=== PATIENT | female | born 1975 | race Caucasian/White ===

== ENCOUNTER 2016-04-28 11:52 | Emergency (ER) | payer OTHER ==
--- NOTE | ~2016-04-28 | CT4 ---
[facility] A Service of [facility] / [facility] RADIOLOGY TEXT RESULTS PATIENT: YANA SHAIKH LOCATION: [facility] : [birth year] UNIT #: [id number] AGE: [address]: Kimberly Palmer MD SEX: F ORDER DR: [id number] [facility] [address] [place], [place] [address] [id number] MR#: [id number] Acc #: [id number] NAME: YANA SHAIKH : 1975 SEX: F STUDY DATE/TIME: 04/28/2016 13:14 UNIT: JONATHON ROOM: STUDY DESCRIPTION: CT Abd and Pelv Wo Cont Attending Physician: Kimberly Palmer M.D. Ordering Physician: Tee Chilel M.D. Primary Care Physician: [facility], [facility]. MEDICAL IMAGING REPORT This report is preliminary unless electronic signature is present EXAM CT abdomen and pelvis without contrast 04/28/2016 HISTORY 41-year-old female with abdominal pain for 2 days. Diarrhea for 2 - 3 days. History of Crohn disease. COMPARISON STUDIES Comparison CT abdomen and pelvis 07/31/2010. TECHNIQUE Helical scan performed through the abdomen and pelvis without oral or IV contrast. Coronal and sagittal reformatted images. This CT exam was performed with one or more of the following radiation dose reduction techniques: automatic exposure control, adjustment of mA and/or kV according to patient size, and iterative reconstruction. FINDINGS Visualized lung bases are unremarkable. The liver, spleen, pancreas, gallbladder, both adrenal glands, and both kidneys are within normal limits. No urinary tract stones or hydronephrosis. Abdominal aorta normal in course and caliber. Small bowel is unremarkable without evidence of obstruction. The appendix is normal. There is mild circumferential colonic wall thickening and pericolonic inflammatory stranding involving the cecum, ascending colon, and transverse colon. Findings consistent with infectious or inflammatory acute colitis. No free fluid or free air. Urinary bladder, uterus, and both adnexa are unremarkable. No acute bony abnormality. [facility] A Service of [facility] / [facility] RADIOLOGY TEXT RESULTS PATIENT: YANA SHAIKH LOCATION: [facility] : [birth year] UNIT #: [id number] AGE: [address]: Kimberly Palmer MD SEX: F ORDER DR: IMPRESSION 1. Mild circumferential colonic wall thickening and pericolonic inflammatory stranding involving the cecum, ascending colon, and transverse colon. Findings most consistent with infectious or inflammatory acute colitis. Given provided history of Crohn disease, Crohn flair up is suspected. No evidence of perforation or abscess. 2. Normal appendix. 3. Negative for urinary tract stones or hydronephrosis. Dictated by... Misha Knox M.D. THIS IS AN ELECTRONICALLY VERIFIED REPORT Misha Knox M.D. at 04/30/2016 8:33 AM Paul TD: 04/29/2016 10:11 JOB #: [id number] MEDICAL IMAGING REPORT Page 1 of 1 COPY
[~2016-04-28 11:52] MED LIST: ACETAMINOPHEN325 MG PO; ASACOL400 MG; ASACOL400 MG PO; FERROUS SULFATE; FLAGYL PO; KCL; NO MEDICATIONS; PHENERGAN PO; PREDNISONE; PREDNISONE PO; ULTRAM PO
[2016-04-28 12:09] LABS: BASOPHIL% 0.3 % (0-2.5); DIFF IND YES; EOSINOPHIL# 0.1 X10e3 (0-0.7); EOSINOPHIL% 0.5 % (0.0-7.0); HEMATOCRIT 33.3 % (35.0-45.0); HEMOGLOBIN 10.3 gm/dL (12.0-16.0); LYMPHOCYTE# 1.6 X10e3 (1.0-3.5); LYMPHOCYTE% 10.7 % (17.0-45.0); MEAN CELL VOLUME 61.6 FL (83-96); MEAN CORPUSCULAR HGB CONC 30.9 g/dL (30-36); MONOCYTE# 0.7 X10e3 (0-1.0); MONOCYTE% 4.5 % (3.0-12.0); NEUTROPHIL# 12.4 X10e3 (1.5-7.1); PLATELET COUNT 315 X10e3 (140-420); RED BLOOD COUNT 5.41 X10e (3.90-5.30); RED CELL DISTRIBUTION WIDTH 15.9 % (11.0-15.5); WHITE BLOOD COUNT 14.8 X10e3 (4.0-10.5)
[2016-04-28 12:22] LABS: NUCLEATED RED BLOOD CELL 2 /100 (0); PLATELET ESTIMATE NORMAL (NORMAL)
[2016-04-28 12:23] LABS: ANISOCYTOSIS MOD; MICROCYTOSIS SL
[2016-04-28 13:32] LABS: URINE SOURCE CLEAN CATCH
[2016-04-28 13:48] LABS: URINE APPEARANCE CLEAR; URINE BILIRUBIN NEG (NEG); URINE BLOOD TRACE (NEG); URINE COLOR YELLOW; URINE GLUCOSE NEG (NEG); URINE KETONE NEG (NEG); URINE LEUKOCYTE ESTERASE NEG (NEG); URINE NITRATE NEG (NEG); URINE PROTEIN NEG (NEG); URINE SPECIFIC GRAVITY 1.005 (1.003-1.035); URINE UROBILINOGEN 0.2 MG/DL (NEG)
[2016-04-28 13:51] LABS: URBCS1 AUWI 0-2 /[HPF] (0-2); URINE BACTERIA AUWI NEG (NEGATIVE); URINE SQUAMOUS EPITHELIAL CELL NONE SEEN /[HPF]; UWBCS1 AUWI 0-2 (0-5)
[2016-04-28 13:54] LABS: CULTURE INDICATED? NO
[2016-04-28 14:59] LABS: ALBUMIN SERUM 3.3 g/dL (3.5-5.0); ALKALINE PHOSPHATASE 82 U/L (32-92); ALT (SGPT) 13 U/L (10-40); AMYLASE 32 U/L (0-46); AST (SGOT) 11 U/L (10-42); BILIRUBIN, DIRECT 0.1 mg/dL (0.0-0.2); BILIRUBIN,INDIRECT 0.3 mg/dL (0.0-0.9); BILIRUBIN,TOTAL 0.4 mg/dL (0.2-2.0); BLOOD UREA NITROGEN 10 mg/dL (9-23); BUN/CREATININE RATIO 16.66; CALCIUM SERUM 8.5 mg/dL (8.4-10.2); CARBON DIOXIDE 22 mmol/L (22-31); CHLORIDE 109 mmol/L (100-111); CREATININE SERUM 0.6 mg/dL (0.6-1.4); GLOM FILT RATE Estimated ABOVE60 mL/min (>60); GLUCOSE FASTING 93 mg/dL (70-110); LIPASE 18 U/L (22-51); POTASSIUM 3.7 mmol/L (3.5-5.1); PROTEIN TOTAL SERUM 5.9 g/dL (6.0-8.3); SODIUM 140 mmol/L (135-145)
== END 2016-04-28 15:19 | disposition home or self-care (01) ==
LOC: CED 11:52
PROVIDERS: Emergency Medicine
DX: K50.90 Crohn's disease, unspecified, without complications (principal); Z88.2 Allergy status to sulfonamides
CPT/HCPCS: 36415; 74176; 80048; 80076; 81003; 82150; 82550; 83690; 85025; 96361; 96374; 96375; 99284; J1200; J2270

== ENCOUNTER 2016-05-01 13:20 | Inpatient (IN) | payer OTHER ==
--- NOTE | ~2016-05-01 | OR ---
Unit #: [id number] #: [id number] Patient: YANA SHAIKH [id number] [address] [address] [id number] I MR#: [id number] NAME: YANA SHAIKH ROOM: [facility] Date of Procedure: 05/01/2016 Admission Date: 05/01/2016 Surgeon: Chau Gold M.D. : 1975 Attending Physician: Oksana Portillo M.D. OPERATIVE REPORT PROCEDURES PERFORMED Colonoscopy with biopsy. INDICATIONS FOR PROCEDURE The patient with chronic diarrhea, history of ulcerative colitis. MEDICATIONS Monitored anesthesia. POSTOPERATIVE FINDINGS 1. Severe left-sided colitis diffusely, multiple biopsies taken. 2. Mild patchy right-sided colitis, biopsies taken separately. 3. TI not intubated despite attempts. PLAN Continue with antibiotics and Solu-Medrol for treatment. We will continue to follow in-house. DESCRIPTION OF PROCEDURE The patient was explained of the procedure, risks, and benefits along with risks and benefits of anesthesia. She was brought to the endoscopy room. Propofol anesthesia was given. Rectal exam was done, which was normal. Colonoscope was lubricated, passed up the rectum, advanced under direct vision all the way to the cecum. Cecum was identified by ileocecal valve and appendiceal orifice. Terminal ileum could not be intubated. Findings as described. Biopsies taken from right and left side of the colon separately. I retroflexed the rectum, involvement of this colon was all the way to dentate lines. Gently, the scope was pulled out. She tolerated it well. Dictated by... Santos Amos/monica TD: 05/24/2016 02:14 JOB #: [id number] Unit #: [id number] #: [id number] Patient: YANA SHAIKH OPERATIVE REPORT Page 1 of 1 X Chau Gold MD X PROCEDURE OPERATIVE NOTE
--- NOTE | ~2016-05-01 | HP ---
Unit #: [id number] #: [id number] Patient: YANA SHAIKH [id number] [address] [address] [id number] I MR#: [id number] NAME: YANA SHAIKH ROOM: 21918 Age: 41 Sex: F Admission Date: 05/01/2016 : 1975 Attending Physician: Valeria Aguiar M.D. Primary Care Physician: [facility] HISTORY AND PHYSICAL CHIEF COMPLAINT Abdominal pain. HISTORY OF PRESENT ILLNESS The patient is a 41-year-old female with history of Crohn disease who presented to the emergency room with abdominal pain and bleeding vaginal and rectal. The patient was seen in the emergency room three days ago for the abdominal pain. The patient had a CT of the abdomen and pelvis that showed colitis involving the cecum, ascending colon and parts of the transverse colon and concerning for the flare up of the Crohn disease. The patient was discharged home on levofloxacin, Flagyl and prednisone. The patient's stated that the patient went home and started taking the medication. Initially, the patient felt better and then patient started having bleeding with urination. The patient also noticed bleeding from the rectum with the pain in the lower abdomen. The pain is pulling type and is 8 out of 10 in severity and radiating to the back. The patient also complains of the vomiting, nausea, and with the fluttering of the heart. The patient denies any fever or chills. The patient presented to the emergency room after failing the outpatient oral therapy. PAST MEDICAL HISTORY 1. History of Crohn disease. 2. History of beta thalassemia. PAST SURGICAL HISTORY . HOME MEDICATIONS 1. Prednisone. 2. Levofloxacin. 3. Flagyl. ALLERGIES Sulfa. SOCIAL HISTORY The patient states that she smokes 3-4 cigarettes per day in the past and drinks alcohol occasionally. No use of illicit drugs. FAMILY HISTORY Positive for thalassemia. REVIEW OF SYSTEMS A 14-point review of systems performed and only pertinent positive Unit #: [id number] #: [id number] Patient: YANA SHAIKH findings as described above, remaining are negative. PHYSICAL EXAMINATION VITAL SIGNS: Temperature 98.5, pulse 101, respiratory rate 14, blood pressure 131/91, saturating 100% at room air. GENERAL: Patient is lying on the bed not in acute distress. HEENT: Atraumatic, normocephalic. Pupils equal, round, and reactive to light and accommodation. Extraocular movements are intact. Dry mucous membranes. NECK: Supple. No JVD. LUNGS: Clear to auscultation bilaterally. HEART: Regular rate and rhythm. ABDOMEN: Tenderness at the lower quadrants, mainly on the right and then the left. EXTREMITIES: No cyanosis, no clubbing. Patient has purpura that has been resolving. NEUROLOGIC: Alert, awake, oriented. No gross focal motor deficit. DIAGNOSTIC STUDIES LABORATORY: Glucose 106, BUN 14, creatinine 0.8, sodium 138, potassium 3.1, chloride 105, bicarb 24, calcium 8.9, total protein 7.1, total bilirubin 0.6, AST 27, ALT 14, alkaline phosphatase 83, amylase 20, lipase 18. WBC 18.6, hemoglobin 10.3, hematocrit 33.9, platelets 273, neutrophils 77.2. UA shows 1+ leukocyte esterase, 3+ blood and innumerable urine rbc's, 10-25 urine wbc's, 1+ urine bacteria. IMAGING: CT abdomen and pelvis on 04/28/2016 showed mild circumferential colonic wall thickening and pericolonic inflammatory stranding involving the cecum, ascending colon and transverse colon. Findings most consistent with infectious or inflammatory acute colitis. Normal appendix. Negative for urinary tract stones or hydronephrosis. CARDIOVASCULAR: EKG shows normal sinus rhythm at a rate of 100 beats per minute, nonspecific T-waves. QTC of 446. ASSESSMENT AND PLAN 1. Colitis likely infectious. 2. Crohn's flare. 3. Gastrointestinal bleed as patient has stool guaiac positive. 4. Hematuria. PLAN 1. Admit patient as inpatient with telemetry. 2. Continue with IV antibiotics with Rocephin and Flagyl. 3. Patient will be started on Protonix. 4. Will have a gastroenterology consult for the rectal bleeding with the flare up of the Crohn's. 5. Repeat labs again in the morning. 6. Replace the potassium 20 mEq orally x1. 7. Further recommendations will follow. Dictated by Valeria Aguiar M.D. Unit #: [id number] #: [id number] Patient: HAWAYANA PENA/kelin TD: 05/01/2016 16:38 JOB #: [id number] HISTORY AND PHYSICAL Page 1 of 1 X X HISTORY AND PHYSICAL
--- NOTE | ~2016-05-01 | DS ---
Unit #: [id number] #: [id number] Patient: YANA ROYAL [id number] [address] [address] [id number] I MR#: [id number] NAME: YANA ROYAL ROOM: 466 Age: 41 Sex: F Admission Date: 05/01/2016 : 1975 Discharge Date: 05/06/2016 Attending Physician: Oksana Portillo M.D. Primary Care Physician: [facility]. DISCHARGE SUMMARY PRIMARY CARE PROVIDER [facility]. PRINCIPAL DIAGNOSES 1. Acute flare of ulcerative colitis. 2. Hypokalemia, resolved. 3. Vaginal bleeding secondary to early menses. 4. Beta thalassemia. 5. Anxiety. 6. Mild blood loss anemia. Discharge hemoglobin 9.0. 7. Steroid-induced leukocytosis. CONSULTANTS Dr. Gold, Gastroenterology. PROCEDURES 1. Colonoscopy on 05/03/2016 with severe left-sided colitis, patchy colitis of the right colon noted. 2. CT scan of abdomen and pelvis without contrast on 04/28/2016 with circumferential colonic wall thickening and pericolonic inflammatory stranding involving the cecum, ascending colon, and transverse colon. CLINICAL HISTORY AND HOSPITAL COURSE Ms. Royal is a 41-year-old female with a history of inflammatory bowel disease, previously in remission, who presents to emergency department with complaints of abdominal pain. Please refer to H and P for further details. The patient underwent CT scan of abdomen and pelvis revealing significant pancolitis. The patient was subsequently admitted. The patient was placed on IV antibiotics and Dr. Gold was consulted. The patient subsequently underwent colonoscopy with findings of significant colitis. As a result of colonoscopy, she was placed on IV steroids. Over the course of the next several days, diarrhea has improved and hemoglobin has remained overall stable. Plan is to discharge the patient on prednisone and Lialda and she will follow up with Dr. Gold as an outpatient. The patient was also having complaints of vaginal bleeding. She underwent a pelvic exam in the emergency department which was negative and workup for sexually transmitted infections negative. I suspect her menses simply came early because of stress and this can be followed up as an outpatient. Again, I will note hemoglobin has remained stable. Unit #: [id number] #: [id number] Patient: YANA ROYAL The patient does demonstrate some significant anxiety, which I think is contributing somewhat to her complaints of pain and recurrent diarrhea, though of course her underlying disease process will also result in these complaints. This can be followed up by primary care as an outpatient. DISCHARGE CONDITION Stable. DISCHARGE STATUS Discharged to home. DISCHARGE MEDICATIONS Tramadol 50 mg 1 q.6 hours p.r.n. for pain number given 20; Levaquin 500 mg p.o. daily for another 10 days; Flagyl 500 mg p.o. t.i.d. for 10 days; Lialda 1.2 g two tablets b.i.d.; prednisone 10 mg tablets 4 tablets daily for 2 weeks, then 3 tablets daily for 2 weeks, then 2 tablets for 2 weeks, then 1 tablet for 2 weeks; Zofran oral disintegrating tablets 4 mg p.o. t.i.d. p.r.n. for nausea. DISCHARGE INSTRUCTIONS The patient is instructed to follow a regular diet. She can increase her activity as tolerated. FOLLOWUP The patient will follow up with Dr. Gold in approximately 2 to 4 weeks and follow up with her primary care provider at [facility] in 2 weeks as well. Dictated by... Oksana Portillo M.D. IBRAHIMA/monica TD: 05/07/2016 02:39 JOB #: [id number] DISCHARGE SUMMARY Page 1 of 1 X Oksana Portillo MD X DISCHARGE SUMMARY
--- NOTE | ~2016-05-01 | CO ---
Unit #: [id number] #: [id number] Patient: YANA SHAIKH [id number] [address] [address] [id number] I MR#: [id number] NAME: YANA SHAIKH ROOM: [facility] Age: 41 Sex: F Admission Date: 05/01/2016 : 1975 Attending Physician: Oksana Portillo M.D. Primary Care Physician: On License Of [facility]. Consultation Date: 05/02/2016 CONSULTATION REPORT REASON FOR CONSULTATION Diarrhea with bleeding and history of ulcerative colitis. HISTORY OF PRESENTING ILLNESS Ms. Shaikh is a 41-year-old lady. She was admitted yesterday with complaints of diarrhea and bleeding. She was diagnosed with ulcerative colitis 6 years ago. She has not been receiving any treatment or followup for last 5 to 6 years. Now for 3 weeks, she had significant diarrhea and about 2 days ago, she started with blood in the stool also. She is having significant abdominal pain. She denied any fever or chills. She denied any nausea, vomiting, or hematemesis. PAST MEDICAL HISTORY History of ulcerative colitis, noncompliant with visits or treatment. ALLERGIES To sulfa. SOCIAL HISTORY Smoker. Occasional EtOH use. Denies drug abuse. FAMILY HISTORY Mother with colon cancer. REVIEW OF SYSTEMS A complete 10-point review of systems was done, which is unremarkable other than as mentioned above. PHYSICAL EXAMINATION VITAL SIGNS: Stable. Afebrile. Temperature 98.5, pulse 101, blood pressure 108/60. HEENT: Pupils equal and reactive. Sclerae anicteric. Oral mucosa moist. NECK: No JVD. No lymphadenopathy. CHEST: Clear to auscultation bilaterally. CARDIOVASCULAR: Regular rate and rhythm. No murmurs. ABDOMEN: Mild generalized tenderness. No guarding. No rebound. EXTREMITIES: Without clubbing, cyanosis, or edema. NEUROLOGIC: Intact. SKIN: Warm and dry. DIAGNOSTIC STUDIES IMAGING STUDIES: CT scan shows circumferential thickening in the cecum area as well as ascending colon and transverse colon area with pericolonic inflammatory stranding what thought to be consistent with patient's Unit #: [id number] #: [id number] Patient: YANA SHAIKH history of IBD. No other acute findings. LABORATORY RESULTS: Lab shows severe microcytic anemia with a hemoglobin of 8.4, MCV of 63, white count elevated at 18,000. Coags are normal. Chemistries show potassium of 3.4 and chloride of 112, normal BUN and creatinine and LFTs. ASSESSMENT AND PLAN 1. The patient with history of ulcerative colitis, now with diarrhea as well as blood in the stool and abdominal pain, possible recurrent disease with flare versus other causes. We will check stool. We will continue with broad-spectrum antibiotics and also plan on doing a colonoscopy for evaluation for definitive treatment. 2. Microcytic anemia, severe, possibly related to chronic blood loss. Again, GI workup to look further sources. We will consider replacing iron after the labs are back. 3. Vaginal bleeding per admitting physician. Thank you, Dr. Aguiar for this interesting consult. We will follow along. Dictated by... Santos Amos/monica TD: 05/02/2016 23:15 JOB #: [id number] CONSULTATION REPORT Page 1 of 1 X Chau Gold MD CONSULTATION REPORT
--- NOTE | ~2016-05-01 | EKG ---
PATIENT: YANA SHAIKH UNIT #: [id number] Ventricular Rate: 100 BPM Atrial Rate: 100 BPM P-R Interval: 116 ms QRS Duration: 80 ms Q-T Interval: 346 ms QTC Calculation(Bezet): 446 ms P [place]: 67 degrees Calculated R [place]: 34 degrees Calculated T [place]: -21 degrees Diagnosis Line: Normal sinus rhythm Diagnosis Line: T wave abnormality, consider anterior ischemia Diagnosis Line: Abnormal ECG Diagnosis Line: When compared with ECG of 31-JUL-2010 14:03, Diagnosis Line: Inverted T waves have replaced nonspecific T wave Diagnosis Line: abnormality in Anterior leads Diagnosis Line: Confirmed by TAYLOR KAPLAN MD ([id number]) on 05/03/2016 Diagnosis Line: 9:29:36 AM INTERPRETING MD: EUSEBIO QUIGLEY
[2016-05-01 12:03] LABS: URINE SOURCE CLEAN CATCH
[2016-05-01 12:08] LABS: URINE APPEARANCE TURBID; URINE BILIRUBIN NEG (NEG); URINE BLOOD 3+ (NEG); URINE COLOR ORANGE; URINE GLUCOSE NEG (NEG); URINE KETONE NEG (NEG); URINE LEUKOCYTE ESTERASE 1+ (NEG); URINE NITRATE NEG (NEG); URINE PH 6.5 (5-8); URINE PROTEIN 1+ (NEG); URINE SPECIFIC GRAVITY 1.015 (1.003-1.035); URINE UROBILINOGEN 0.2 MG/DL (NEG)
[2016-05-01 12:10] LABS: CULTURE INDICATED? YES; URBCS1 AUWI INNUM /[HPF] (0-2); URINE BACTERIA AUWI 1+ (NEGATIVE); URINE SQUAMOUS EPITHELIAL CELL FEW /[HPF]
[2016-05-01 12:13] LABS: BASOPHIL% 0.2 % (0-2.5); EOSINOPHIL# 0.3 X10e3 (0-0.7); EOSINOPHIL% 1.5 % (0.0-7.0); HEMATOCRIT 33.9 % (35.0-45.0); HEMOGLOBIN 10.3 gm/dL (12.0-16.0); LYMPHOCYTE# 3.3 X10e3 (1.0-3.5); LYMPHOCYTE% 17.8 % (17.0-45.0); MEAN CELL VOLUME 62.8 FL (83-96); MEAN CORPUSCULAR HEMOGLOBIN 19.1 PG (28-34); MEAN CORPUSCULAR HGB CONC 30.5 g/dL (30-36); MEAN PLATELET VOLUME 8.2 FL (6.5-11.5); MONOCYTE# 0.6 X10e3 (0-1.0); MONOCYTE% 3.3 % (3.0-12.0); NEUTROPHIL# 14.3 X10e3 (1.5-7.1); NEUTROPHIL% 77.2 % (40-75); PLATELET COUNT 273 X10e3 (140-420); RED BLOOD COUNT 5.39 X10e (3.90-5.30); WHITE BLOOD COUNT 18.6 X10e3 (4.0-10.5)
[2016-05-01 12:22] LABS: DIFF IND NO; PARTIAL THROMBOPLASTIN TIME 20.8 SECONDS (23.5-31.3); PROTHROMBIN TIME (PATIENT) 10.7 SECONDS (9.6-11.5)
[2016-05-01 12:40] LABS: ALBUMIN SERUM 3.8 g/dL (3.5-5.0); ALKALINE PHOSPHATASE 83 U/L (32-92); ALT (SGPT) 14 U/L (10-40); AMYLASE 20 U/L (0-46); AST (SGOT) 27 U/L (10-42); BILIRUBIN, DIRECT 0.2 mg/dL (0.0-0.2); BILIRUBIN,INDIRECT 0.4 mg/dL (0.0-0.9); BILIRUBIN,TOTAL 0.6 mg/dL (0.2-2.0); BLOOD UREA NITROGEN 14 mg/dL (9-23); CALCIUM SERUM 8.9 mg/dL (8.4-10.2); CARBON DIOXIDE 24 mmol/L (22-31); CHLORIDE 105 mmol/L (100-111); CREATININE SERUM 0.8 mg/dL (0.6-1.4); GLOM FILT RATE Estimated ABOVE60 mL/min (>60); GLUCOSE FASTING 106 mg/dL (70-110); LIPASE 18 U/L (22-51); POTASSIUM 3.1 mmol/L (3.5-5.1); PROTEIN TOTAL SERUM 7.1 g/dL (6.0-8.3); SODIUM 138 mmol/L (135-145)
[2016-05-01] MEDS ORDERED: ZOFRAN ODT4 MG PO (15:05)
[2016-05-01] MEDS ORDERED: LEVAQUIN750 MG PO (15:06)
[2016-05-01] MEDS ORDERED: METRONIDAZOLE250 MG PO (15:07)
[2016-05-01] MEDS ORDERED: DELTASONE20 MG PO (15:08)
[2016-05-02 04:51] LABS: BASOPHIL% 0.3 % (0-2.5); EOSINOPHIL# 0.4 X10e3 (0-0.7); HEMATOCRIT 27.6 % (35.0-45.0); HEMOGLOBIN 8.4 gm/dL (12.0-16.0); LYMPHOCYTE# 3.6 X10e3 (1.0-3.5); LYMPHOCYTE% 31.2 % (17.0-45.0); MEAN CORPUSCULAR HEMOGLOBIN 19.2 PG (28-34); MEAN CORPUSCULAR HGB CONC 30.5 g/dL (30-36); MEAN PLATELET VOLUME 8.1 FL (6.5-11.5); MONOCYTE# 0.5 X10e3 (0-1.0); MONOCYTE% 4.3 % (3.0-12.0); NEUTROPHIL# 7.1 X10e3 (1.5-7.1); NEUTROPHIL% 61.2 % (40-75); PLATELET COUNT 332 X10e3 (140-420); RED BLOOD COUNT 4.38 X10e (3.90-5.30); RED CELL DISTRIBUTION WIDTH 15.9 % (11.0-15.5); WHITE BLOOD COUNT 11.6 X10e3 (4.0-10.5)
[2016-05-02 04:52] LABS: DIFF IND NO
[2016-05-02 05:38] LABS: BLOOD UREA NITROGEN 11 mg/dL (9-23); BUN/CREATININE RATIO 15.71; CALCIUM SERUM 7.9 mg/dL (8.4-10.2); CARBON DIOXIDE 20 mmol/L (22-31); CHLORIDE 112 mmol/L (100-111); CREATININE SERUM 0.7 mg/dL (0.6-1.4); GLOM FILT RATE Estimated ABOVE60 mL/min (>60); GLUCOSE FASTING 83 mg/dL (70-110); POTASSIUM 3.4 mmol/L (3.5-5.1); SODIUM 139 mmol/L (135-145)
[2016-05-02 12:33] LABS: IRON SERUM 46 ug/dL (28-170); TOTAL IRON BINDING CAPACITY 206 ug/dL (269-535); TRANSFERRIN 147 mg/dL (192-382); TRANSFERRIN SATURATION 22 % (20-50)
[2016-05-03 04:19] LABS: BASOPHIL# 0.1 X10e3 (0-0.3); BASOPHIL% 0.8 % (0-2.5); EOSINOPHIL# 0.3 X10e3 (0-0.7); EOSINOPHIL% 2.5 % (0.0-7.0); HEMATOCRIT 29.2 % (35.0-45.0); HEMOGLOBIN 8.9 gm/dL (12.0-16.0); LYMPHOCYTE# 2.8 X10e3 (1.0-3.5); MEAN CELL VOLUME 63.3 FL (83-96); MEAN CORPUSCULAR HEMOGLOBIN 19.3 PG (28-34); MEAN CORPUSCULAR HGB CONC 30.4 g/dL (30-36); MEAN PLATELET VOLUME 7.9 FL (6.5-11.5); MONOCYTE# 0.5 X10e3 (0-1.0); MONOCYTE% 4.3 % (3.0-12.0); NEUTROPHIL# 7.2 X10e3 (1.5-7.1); NEUTROPHIL% 66.4 % (40-75); PLATELET COUNT 341 X10e3 (140-420); RED CELL DISTRIBUTION WIDTH 15.9 % (11.0-15.5); WHITE BLOOD COUNT 10.8 X10e3 (4.0-10.5)
[2016-05-03 04:20] LABS: DIFF IND NO
[2016-05-03 04:43] LABS: ALBUMIN SERUM 2.9 g/dL (3.5-5.0); BILIRUBIN,TOTAL 0.4 mg/dL (0.2-2.0); BUN/CREATININE RATIO 8.57; CALCIUM SERUM 8.1 mg/dL (8.4-10.2); CREATININE SERUM 0.7 mg/dL (0.6-1.4); GLOM FILT RATE Estimated 109.1 mL/min (>60); MAGNESIUM 1.9 mg/dL (1.6-3.0); POTASSIUM 3.4 mmol/L (3.5-5.1); PROTEIN TOTAL SERUM 5.5 g/dL (6.0-8.3)
[2016-05-03 05:03] LABS: FOLATE (FOLIC ACID) 8.4 ng/mL (>5.8)
[2016-05-03 19:36] LABS: CHLAMYDIA TRACH Not Detected (Not Detected); N GONOR Not Detected (Not Detected)
[2016-05-04 03:35] LABS: BASOPHIL% 0.3 % (0-2.5); HEMATOCRIT 31.3 % (35.0-45.0); HEMOGLOBIN 9.5 gm/dL (12.0-16.0); LYMPHOCYTE# 0.7 X10e3 (1.0-3.5); LYMPHOCYTE% 5.8 % (17.0-45.0); MEAN CELL VOLUME 62.6 FL (83-96); MEAN CORPUSCULAR HGB CONC 30.4 g/dL (30-36); MEAN PLATELET VOLUME 8.1 FL (6.5-11.5); MONOCYTE# 0.1 X10e3 (0-1.0); MONOCYTE% 0.5 % (3.0-12.0); NEUTROPHIL% 93.4 % (40-75); PLATELET COUNT 391 X10e3 (140-420); RED BLOOD COUNT 5.01 X10e (3.90-5.30); RED CELL DISTRIBUTION WIDTH 15.4 % (11.0-15.5); WHITE BLOOD COUNT 12.8 X10e3 (4.0-10.5)
[2016-05-04 03:37] LABS: DIFF IND NO
[2016-05-04 03:59] LABS: ALBUMIN SERUM 3.2 g/dL (3.5-5.0); BILIRUBIN,TOTAL 0.2 mg/dL (0.2-2.0); BUN/CREATININE RATIO 11.42; CALCIUM SERUM 8.6 mg/dL (8.4-10.2); CREATININE SERUM 0.7 mg/dL (0.6-1.4); GLOM FILT RATE Estimated 109.1 mL/min (>60); POTASSIUM 4.4 mmol/L (3.5-5.1); PROTEIN TOTAL SERUM 6.1 g/dL (6.0-8.3)
[2016-05-05 02:34] LABS: HEMATOCRIT 31.6 % (35.0-45.0); HEMOGLOBIN 9.5 gm/dL (12.0-16.0); MEAN CELL VOLUME 63.2 FL (83-96); MEAN PLATELET VOLUME 8.5 FL (6.5-11.5); RED CELL DISTRIBUTION WIDTH 15.8 % (11.0-15.5)
[2016-05-06 03:47] LABS: BASOPHIL% 0.2 % (0-2.5); HEMATOCRIT 29.7 % (35.0-45.0); LYMPHOCYTE# 1.4 X10e3 (1.0-3.5); LYMPHOCYTE% 6.6 % (17.0-45.0); MEAN CORPUSCULAR HGB CONC 30.2 g/dL (30-36); MEAN PLATELET VOLUME 8.3 FL (6.5-11.5); MONOCYTE# 0.3 X10e3 (0-1.0); MONOCYTE% 1.5 % (3.0-12.0); NEUTROPHIL# 19.8 X10e3 (1.5-7.1); NEUTROPHIL% 91.7 % (40-75); PLATELET COUNT 449 X10e3 (140-420); RED BLOOD COUNT 4.72 X10e (3.90-5.30); RED CELL DISTRIBUTION WIDTH 15.9 % (11.0-15.5); WHITE BLOOD COUNT 21.6 X10e3 (4.0-10.5)
[2016-05-06 03:49] LABS: DIFF IND YES
[2016-05-06 04:15] LABS: ALBUMIN SERUM 3.3 g/dL (3.5-5.0); BILIRUBIN,TOTAL 0.4 mg/dL (0.2-2.0); BUN/CREATININE RATIO 27.14; CALCIUM SERUM 8.8 mg/dL (8.4-10.2); CREATININE SERUM 0.7 mg/dL (0.6-1.4); GLOM FILT RATE Estimated 109.1 mL/min (>60); POTASSIUM 4.2 mmol/L (3.5-5.1); PROTEIN TOTAL SERUM 5.9 g/dL (6.0-8.3)
[2016-05-06 04:39] LABS: ANISOCYTOSIS SL; OVALOCYTES PRESENT; PLATELET ESTIMATE INCREASED (NORMAL); TEAR DROP CELLS PRESENT
[2016-05-06 04:40] LABS: MICROCYTOSIS MOD; SCHISTOCYTES PRESENT
[2016-05-06] MEDS ORDERED: FLAGYL PO (17:15)
[2016-05-06] MEDS ORDERED: LEVAQUIN PO (17:16)
[2016-05-06] MEDS ORDERED: LIALDA1.2 G PO (17:17)
== END 2016-05-06 19:29 | disposition home or self-care (01) | DRG 386 ==
LOC: CED 13:20 → CEDOF 15:00 → C4C 17:33
PROVIDERS: Emergency Medicine; Internal Medicine
PROC: 0DBG8ZX Excision of Left Large Intestine, Via Natural or Artificial Opening Endoscopic, Diagnostic (ICD-10-PCS; principal; 2016-05-01)
PROC: 0DBF8ZX Excision of Right Large Intestine, Via Natural or Artificial Opening Endoscopic, Diagnostic (ICD-10-PCS; 2016-05-01)
DX: K51.00 Ulcerative (chronic) pancolitis without complications (principal); D62 Acute posthemorrhagic anemia; D56.1 Beta thalassemia; D50.9 Iron deficiency anemia, unspecified; K92.2 Gastrointestinal hemorrhage, unspecified; E87.6 Hypokalemia; F41.9 Anxiety disorder, unspecified; Z88.2 Allergy status to sulfonamides; F17.200 Nicotine dependence, unspecified, uncomplicated; Z80.0 Family history of malignant neoplasm of digestive organs; N92.6 Irregular menstruation, unspecified
CPT/HCPCS: 36415; 80048; 80053; 80076; 81003; 82150; 82607; 82728; 82746; 83540; 83550; 83690; 83735; 84703; 85025; 85027; 85610; 85730; 86140; 87086; 87491; 87591; 87808; 87905; 88305; 93005; 94760; 96374; 96375; 99285; C9113; J0696; J1956; J2250; J2270; J2405; J2930

== ENCOUNTER 2016-10-09 11:50 | Inpatient (IN) | payer OTHER ==
[~2016-10-09] VITALS: Ht 157.5 cm; Wt 59.0 kg
--- NOTE | ~2016-10-09 | OR ---
Unit #: [id number] #: [id number] Patient: YANA SHAIKH [id number] [address] [place], [place] [address] [id number] I MR#: [id number] NAME: YANA SHAIKH ROOM: [facility] Date of Procedure: 10/10/2016 Admission Date: 10/09/2016 Surgeon: Chau Gold M.D. : 1975 Attending Physician: Oksana Portillo M.D. Primary Care Physician: [facility], [facility]. PROCEDURE OPERATIVE NOTE PROCEDURE EGD, ERCP with sphincterotomy, balloon extraction of common bile duct and stenting of CBD and stenting of PD. INDICATIONS Patient with severe epigastric pain, obstructive jaundice with mostly direct bilirubin along with AST and ALT elevation and dilated duct on the CAT scan suggests distal CBD obstruction, possible stone. Is undergoing evaluation with upper endoscopy and ERCP. MEDICATION Monitored anesthesia. POSTOP FINDINGS 1. EGD exam shows evidence of mild gastritis, otherwise normal. 2. ERCP shows dilated common bile duct to 8-10 mm. No filling defect. 3. Cystic duct was opened. 4. Sphincterotomy performed. 5. Balloon extraction of common bile duct negative. 6. 7 x 7 CBD stent placed. 7. (1) duct injected, dilated up to 5-[address] to the ampulla. 8. 5 x 5 Bridges placed in the pancreatic duct. PLAN Followup clinically as well as review labs. Repeat evaluation and stent removal after six weeks. DESCRIPTION OF PROCEDURE The patient was explained the procedure, risks, and benefits along with risks and benefits of anesthesia. Risk of pancreatitis was discussed in detail. She was brought to the endoscopy room. She was laid in prone position. EGD was done first. The scope was passed down the mouth into the esophagus, stomach, duodenum, and distal duodenum. Findings as described. Gently, the scope was pulled out. She tolerated it well. At this time, we used side-viewing scope which was passed down the mouth and esophagus. Ampulla was visualized and the lesion in the duodenum. Pancreatic duct was injected first which shows significant dilation. CBD was then injected and shows dilation. Also, no filling defects seen. The cystic duct was patent, filling the gallbladder. A 5 mm sphincterotomy was made at around 12 o'clock position. Unit #: [id number] #: [id number] Patient: YANA SHAIKH A 7 x 7 CBD stent was placed. PD was intubated, cannulated again and a 5 x 5 Bridges was placed across the ampulla. Scope was then gently withdrawn. Stomach was decompressed. She tolerated it well. No major complications noted. Dictated by... Santos Amos/mayela TD: 10/11/2016 09:03 JOB #: [id number] PROCEDURE OPERATIVE NOTE Page 1 of 1 X Chau Gold MD X PROCEDURE OPERATIVE NOTE
--- NOTE | ~2016-10-09 | HP ---
Unit #: [id number] #: [id number] Patient: DENEEN SHAIKH [id number] [address] [address] [id number] I MR#: [id number] NAME: DENEEN SHAIKH ROOM: 215 Age: 41 Sex: F Admission Date: 10/09/2016 : 1975 Attending Physician: Deneen Hagen M.D. Primary Care Physician: [facility]. HISTORY AND PHYSICAL CHIEF COMPLAINT Abdominal pain. HISTORY OF PRESENT ILLNESS The patient is a 41-year-old female with a past medical history of ulcerative colitis, beta thalassemia, and anxiety, who presented to the emergency department for evaluation of the above. The patient states that she has not been feeling well since October 07, 2016. She states that she has had pain in the abdomen. She states it is in the upper abdomen. She describes it as "severe." It has been constant in nature. There are no exacerbating or alleviating factors. She denies any similar pain. She denies fever. She has had more than 10 bouts of nonbloody emesis within the past 24 hours. She states that she has had loose stool at baseline two to three nonbloody stools within the past 24 hours. She states that she has had some urinary urgency. In the emergency department, a CT of the abdomen and pelvis was done and showed mild prominence of the intrahepatic bile ducts without evidence for obstructing radiodense stone or mass. Laboratory notable for AST and ALT of 342 and 353, respectively, alkaline phosphatase 261, and total bilirubin is 2.9 with 1.7 direct and 1.2 indirect. She was given 30 mg of Toradol, as well as 20 mg of Bentyl, 4 mg of Zofran, and 0.5 mg of Dilaudid, as well as a 1 liter normal saline bolus in the emergency department. She is being admitted to [facility] for evaluation and further treatment. PAST MEDICAL HISTORY 1. Admission to [facility] May 01-2016, for ulcerative colitis flare. 2. Ulcerative colitis maintained on Lialda. The patient has had some insurance-related issues causing difficulty obtaining medications. She sees Dr. Gold. 3. Beta thalassemia. 4. Anxiety. PAST SURGICAL HISTORY 1. . 2. Colonoscopy most recently May 01, 2016, showed severe left-sided colitis and mild patchy right-sided colitis. SOCIAL HISTORY The patient continues to smoke three to four cigarettes daily. She drinks alcohol occasionally. Unit #: [id number] #: [id number] Patient: DENEEN SHAIKH FAMILY HISTORY Thalassemia. ALLERGIES Sulfa. HOME MEDICATIONS Lialda 2 tablets twice daily p.r.n. REVIEW OF SYSTEMS A complete review of systems is negative except as indicated in the HPI. PHYSICAL EXAMINATION VITAL SIGNS: Temperature is 98.7, pulse 94, respirations 16, blood pressure 118/70, and oxygen saturation 100% on room air. GENERAL: The patient is an female who is awake, alert, and in no acute distress. HEENT: Head is atraumatic. Mucous membranes are dry. NECK: Supple. Trachea is midline. CARDIOVASCULAR: Regular rate and rhythm. LUNGS: Clear to auscultation bilaterally with no increased work of breathing. ABDOMEN: Soft. She is tender to palpation throughout but worse in the epigastric area and upper quadrants. Rectal exam was heme negative per ER documentation. EXTREMITIES: Nontender with no pedal edema. NEUROLOGIC: The patient is awake and alert. She follows commands. PSYCHIATRIC: Mood and affect are normal. The patient is cooperative. SKIN: Skin of examined areas is warm and dry. DIAGNOSTIC STUDIES LABORATORY: Tylenol and alcohol levels are negative. Complete blood count notable for hemoglobin and hematocrit of 11.3 and 35.6, respectively and MCV is 58.7. Urinalysis notable for trace leukocyte esterase, 2-5 red blood cells, 5-10 white blood cells, 2+ bacteria, and many squamous cells are noted. Comprehensive metabolic panel notable for AST and ALT of 342 and 353, respectively, alkaline phosphatase 261, and total bilirubin 2.9 with 1.7 direct and 1.2 indirect. Lipase is 38. Beta hCG was negative. IMAGING: CT of the abdomen and pelvis shows mild prominence of the intrahepatic bile ducts without evidence of obstructing radiodense stone or mass. There is a right ovarian cyst. ASSESSMENT The patient is a 41-year-old female with: 1. Abdominal pain. 2. Abnormal CT showing prominent intrahepatic bile ducts. The patient also has abnormal liver function tests concerning for possible common bile duct stone. She may need ERCP. 3. Microcytic anemia. The patient has a history of beta thalassemia. Hemoglobin was 9 on May 06, 2016. It is 11.3 today. 4. Possible urinary tract infection. The patient has had symptoms. There are many squamous cells and specimen may be contaminated. 5. Ulcerative colitis, on Lialda, followed by Dr. Gold. 6. Anxiety. 7. Right ovarian cyst likely benign. 8. Tobacco abuse. Unit #: [id number] #: [id number] Patient: DENEEN SHAIKH PLAN 1. Admit for observation to med/surg. 2. P.r.n. Dilaudid. 3. P.r.n. Zofran. 4. Consult Dr. Gold regarding abnormal LFTs and concern for possible common bile duct stone. Patient may need ERCP. 5. Urine culture and sensitivity on urine in the lab. 6. Rocephin 1 gram IV daily pending results of urine culture. 7. Repeat labs in the morning. 8. N.p.o. except ice chips. 9. N.p.o. after midnight for possible procedure. 10. Normal saline at 125 mL/hour. 11. SCDs for DVT prophylaxis. 12. Additional workup and consultants based on above. 1. Dictated by Santos Segal/oma TD: 10/09/2016 21:26 JOB #: [id number] HISTORY AND PHYSICAL Page 1 of 1 X Deneen Hagen MD X HISTORY AND PHYSICAL
--- NOTE | ~2016-10-09 | CR84 ---
[facility] A Service of [facility] & [facility] RADIOLOGY TEXT RESULTS PATIENT: YANA SHAIKH LOCATION: [facility] 215- : [birth year] UNIT #: [id number] AGE: [address]: Oksana Portillo MD SEX: F ORDER DR: [id number] [facility] [address] [facility]. [place], [place] [address] [id number] I MR#: [id number] Acc #: [id number] NAME: YANA SHAIKH : 1975 SEX: F STUDY DATE/TIME: 10/10/2016 10:00 UNIT: [facility] ROOM: [facility] STUDY DESCRIPTION: CR ERCP Biliary and Pancr SI Attending Physician: Oksana Portillo M.D. Ordering Physician: Chau Gold M.D. Primary Care Physician: [facility] MEDICAL IMAGING REPORT This report is preliminary unless electronic signature is present EXAM ERCP interpretation only INDICATION Jaundice, dilated bile duct. FLUOROSCOPY TIME 1 minute 20 seconds. Nine fluoroscopic images were submitted. FINDINGS Study demonstrates a dilated pancreatic duct and common bile duct. A sphincterotomy was performed and a stent was placed into the pancreatic duct. Please refer to ERCP report for complete details. Dictated by... Lexa Durham M.D. THIS IS AN ELECTRONICALLY VERIFIED REPORT Lexa Durham M.D. at 10/11/2016 7:36 AM NARINDER/garfield TD: 10/10/2016 13:31 JOB #: [id number] MEDICAL IMAGING REPORT Page 1 of 1 COPY
--- NOTE | ~2016-10-09 | CO ---
Unit #: [id number] #: [id number] Patient: YANA SHAIKH [id number] [address] [place], [place] [address] [id number] I MR#: [id number] NAME: YANA SHAIKH ROOM: 215 Age: 41 Sex: F Admission Date: 10/09/2016 : 1975 Attending Physician: Oksana Portillo M.D. Primary Care Physician: [facility] CONSULTATION REPORT REFERRING PHYSICIAN Dr. Gold. HISTORY AND EXAM Ms. Shaikh is a 41-year-old female with a history of beta thalassemia, previous blood transfusions, and a family history of sickle cell anemia. She also has a history of Crohn disease but has never required a surgical resection. She presented with worsening epigastric and right upper quadrant pain, associated nausea and nonbloody vomiting. She denied any fever or chills. CT scan in the emergency room showed some dilated intrahepatic ducts and her labs showed an elevation of her liver chemistries with her total bilirubin being at 2.9. Because of the dilated ducts and jaundice, she underwent an ERCP. This ECRP showed a common bile duct at 8-10 mm and a pancreatic duct at 5-6 mm. There was no mention that there was any stricture of the ampulla and on balloon sweep of the common duct no stones were identified and the cystic duct was noted to be patent. Stents in both the pancreatic duct and common duct were performed. We were asked to see the patient to see if we thought she may need cholecystectomy. PAST MEDICAL HISTORY 1. Crohn disease. 2. Beta thalassemia. 3. Anxiety. 4. x1. 5. She is 5, para 5, abortus 0. She has had four vaginal deliveries. 6. She has had several colonoscopies. ALLERGIES Sulfa. HOME MEDICATIONS Lialda. FAMILY HISTORY Sickle cell anemia and beta thalassemia. SOCIAL HISTORY She lives with her children's father but does not describe herself as . She smokes a few cigarettes daily. Social alcohol drinker. Denies the use of drugs or any prior history of IV drugs. She has had blood transfusions with one of her deliveries. Unit #: [id number] #: [id number] Patient: YANA SHAIKH REVIEW OF SYSTEMS No hematemesis, hematochezia, melena. No fever, chills. She has had nausea and vomiting. She is unaware of being exposed to hepatitis. She says she has had one episode of jaundice before but does not know any of the details. PHYSICAL EXAMINATION VITAL SIGNS: On current examination, temperature is 97.9, pulse 52, respirations 16, blood pressure 92/50. GENERAL: She is awake and alert but tearful, says she is having diffuse abdominal pain after her ERCP. HEENT: Sclerae are clear. CARDIAC: Regular rhythm. LUNGS: Clear. ABDOMEN: Diffusely tender. No prominent area of localized tenderness. No mass. No hernias appreciated. EXTREMITIES: No edema. NEUROLOGIC: Grossly intact. DIAGNOSTIC STUDIES LABORATORY: Chemistries today show total bilirubin has dropped to 0.9 and her other liver chemistries are normalizing. Previous lipase was 38. Basic metabolic panel shows a serum CO2 of 18 but otherwise unremarkable. White count is 10.6, hemoglobin 9.1, platelets 314,000. Urinalysis is leukocyte esterase positive, bile positive, 5-10 white cells. Cultures pending. IMAGING: CT scan of the abdomen and pelvis on October 09 showed mild prominence of intrahepatic bile ducts without evidence for obstructing stone or mass. Appendix slightly prominent. No inflammation seen. A 2.1 cm right ovarian cyst that appears to be a benign functional cyst. ASSESSMENT AND PLAN A 41-year-old female as described. The etiology of her abdominal pain is unclear. At this point given that I am uncertain of what is causing her pain, whether it could be her inflammatory bowel disease or whether she had some underlying biliary disease, I think we will follow and see how she responds to her stent placement. Repeat labs will be ordered and since she has had a blood transfusion in the past, we will get a viral hepatitis profile for completeness. Again, she did say she has had another episode of jaundice but did not know the specifics. Dictated by... Polo Masters M.D. WEI/chidi TD: 10/11/2016 12:14 JOB #: [id number] Unit #: [id number] #: [id number] Patient: HAWAYANA BAUGH CONSULTATION REPORT Page 1 of 1 X Polo Masters MD CONSULTATION REPORT
--- NOTE | ~2016-10-09 | NM21 ---
[facility] A Service of [facility] RADIOLOGY TEXT RESULTS PATIENT: YANA SHAIKH LOCATION: [place] [address] : [birth year] UNIT #: [id number] AGE: [address]: Mario Miller MD SEX: F ORDER DR: [id number] [facility] [address] [facility]. [place], [place] [address] [id number] I MR#: [id number] Acc #: [id number] NAME: YANA SHAIKH : 1975 SEX: F STUDY DATE/TIME: 10/11/2016 13:49 UNIT: C2A ROOM: [facility] STUDY DESCRIPTION: NM Hepatobiliary W GB Attending Physician: Oksana Portillo M.D. Ordering Physician: Miller Bond M.D. Primary Care Physician: [facility] MEDICAL IMAGING REPORT This report is preliminary unless electronic signature is present EXAM HIDA scan without Kinevac DATE 10/11/2016 HISTORY Epigastric and right upper quadrant abdominal pain with nausea, and vomiting and bloating. Gas and belching. Early satiety. Symptoms began Friday. COMPARISON ERCP 10/10/2016. CT abdomen and pelvis with contrast 10/09/2016. FINDINGS Following the administration of 5.97 mCi technetium 99m Choletec, anterior planar imaging was obtained of the abdomen at 15 minute intervals for 1 hour. There is normal radiopharmaceutical uptake within the liver and the gallbladder is promptly visualized within the first 15 minutes of imaging. Gradual radiopharmaceutical accumulation of the small bowel loops is demonstrated. Findings indicate patency of both the cystic and common bile ducts. There is no evidence of acute or chronic cholecystitis. IMPRESSION Normal HIDA scan. Dictated by... Jill Babin M.D. THIS IS AN ELECTRONICALLY VERIFIED REPORT Jill Babin M.D. at 10/17/2016 8:36 AM LLH/to [facility] A Service of [facility] RADIOLOGY TEXT RESULTS PATIENT: YANA SHAIKH LOCATION: [facility] 46- : [birth year] UNIT #: [id number] AGE: [address]: Mario Miller MD SEX: F ORDER DR: TD: 10/11/2016 19:35 JOB #: [id number] MEDICAL IMAGING REPORT Page 1 of 1 COPY
--- NOTE | ~2016-10-09 | DS ---
Unit #: [id number] #: [id number] Patient: YANA SHAIKH [id number] [address] [address] [id number] I MR#: [id number] NAME: YANA SHAIKH ROOM: 46 Age: 41 Sex: F Admission Date: 10/09/2016 : 1975 Discharge Date: 10/14/2016 Attending Physician: Mario Miller M.D. Primary Care Physician: [facility]. DISCHARGE SUMMARY PRINCIPAL DIAGNOSIS 1. 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 2. Pancreatic duct dilatation, status post stenting. 3. Transaminitis secondary to #1, resolving. 4. Ulcerative colitis, noncompliant with Lialda. 5. Beta thalassemia. 6. Anxiety. 7. Right ovarian cyst, physiologic. 8. Tobaccoism. 9. Non-anion gap metabolic acidosis, resolved. CONSULTANTS 1. Dr. Gold - Gastroenterology. 2. Dr. Bond - General Surgery. PROCEDURES 1. EGD with ERCP on October 10, 2016. EGD showed mild gastritis. Dilated common bile duct measuring 8-10 mm without filling defects. Cystic duct was open. Sphincterotomy was performed. Balloon extraction of common bile duct was negative. A 7 x 7 common bile duct stent was placed. Pancreatic duct injected, dilated at 5-6 mm to the ampulla and 5 x 5 Bridges placed in the pancreatic duct. 2. HIDA scan on October 11, 2016, which was normal. 3. CT scan of the abdomen and pelvis with contrast on October 09, 2016, with prominence of the intrahepatic bile duct without evidence for radiodense stone or mass. Slightly prominent appendix at 8 mm. A 2.1 cm cyst in the right ovary. CLINICAL HISTORY AND HOSPITAL COURSE Ms. Shaikh is a 41-year-old -Citizen [place] female who presents to the emergency department with abdominal pain, nausea and vomiting. Abdominal pain was located primarily in the epigastric and right upper quadrant region. CT scan of the abdomen and pelvis was abnormal in the ED as noted above. Upon presentation, her AST and ALT were elevated at 342 and 353 respectively. Alk. phos. was also elevated at 261. Bilirubin was 2.9 and primarily direct. Patient was subsequently admitted. GI was consulted regarding patient's LFTs. There were concerns about perhaps any sort of obstructive jaundice, i.e. an unidentified stone versus sludge versus other. Patient underwent ERCP with findings as noted. She underwent common bile duct stent placement and pancreatic duct stent placement. Even preoperatively her LFTs began to decrease on her own and have improved following the procedure. Post procedure lipase is only mildly elevated at 100. Patient continued to have significant pain. Unit #: [id number] #: [id number] Patient: YANA SHAIKH GURJIT was consulted given there may be need for laparoscopic cholecystectomy. However, patient's HIDA scan was unremarkable and there are no plans for cholecystectomy at this time. Patient is tolerating clear liquid diet but still containing to complain of a lot of pain. It was felt her pain is most likely a combination of perhaps some irritation of the liver secondary to her elevated LFTs in addition to the stent placement. She will be discharged home on oral pain meds and will follow up with Dr. Gold as instructed. Patient's other medical conditions otherwise remain stable. She had some mild anxiety which may be contributing but I think this will be hopefully a non-factor in the future. DISCHARGE CONDITION Stable. DISCHARGE STATUS Discharge to home. DISCHARGE MEDICATIONS 1. Lialda, 2 tablets p.o. b.i.d. 2. Percocet 5/325, 1-2 tablets p.o. q.6 hours p.r.n. for pain, number given 15. DISCHARGE INSTRUCTIONS Patient instructed to follow a low fat diet for the next few days and then can increase as tolerated to regular. She should refrain from any further tobacco use. FOLLOWUP Patient should follow up with Dr. Gold for stent removal in 8 weeks by ERCP. She is to call is office for an appointment. She can follow up with her primary care provider at [facility] in 2 weeks. Dictated by... Oksana Portillo M.D. IBRAHIMA/mayela TD: 10/14/2016 16:20 JOB #: [id number] DISCHARGE SUMMARY Page 1 of 1 X Oksana Portillo MD DISCHARGE SUMMARY
--- NOTE | ~2016-10-09 | DS ---
Unit #: [id number] #: [id number] Patient: YANA SHAIKH [id number] [address] [place], [place] [address] [id number] I MR#: [id number] NAME: YANA SHAIKH ROOM: 461 Age: 41 Sex: F Admission Date: 10/09/2016 : 1975 Discharge Date: 10/14/2016 Attending Physician: Mario Miller M.D. Primary Care Physician: [facility]. DISCHARGE SUMMARY ADDENDUM This is an addendum to a previously dictated discharge summary on October 11, 2016. This is a continuation of dictation #[id number]. To discharge diagnosis, please put: 1. Post endoscopic retrograde cholangiopancreatography pancreatitis, mild. 2. Anxiety. 3. Mild protein malnutrition. HOSPITAL COURSE Patient remained in the hospital the evening of October 11 due to complaints of continued pain and nausea with clears. She was seen the following morning and had relatively benign abdominal exam but continued to complain of significant pain. Thus, repeat blood work was done revealing and elevated lipase of 215. CT scan of the abdomen and pelvis was also done revealing an early acute pancreatitis likely related to a recent ERCP with common bile duct and pancreatic stent placement. She was placed on clear liquid diet, antiemetics, pain control and IV fluids. This morning her lipase is now down to 107 and she states she feels better. I am going to advance diet today but anticipate if blood work is improved tomorrow and she is able to eat she will be discharged home. Discharge medications will be as previously dictated on October 11. She will follow up with Dr. Gold in 2-3 weeks and arrange for outpatient ERCP for stent removal at that time. Will follow up with [facility] in 2 weeks. Dictated by... Oksana Portillo M.D. IBRAHIMA/mayela TD: 10/14/2016 19:21 JOB #: [id number] Unit #: [id number] #: [id number] Patient: YANA SHAIKH DISCHARGE SUMMARY Page 1 of 1 X Oksana Portillo MD X DISCHARGE SUMMARY
--- NOTE | ~2016-10-09 | DS ---
Unit #: [id number] #: [id number] Patient: YANA SHAIKH [id number] [address] [address] [id number] I MR#: [id number] NAME: YANA SHAIKH ROOM: 46 Age: 41 Sex: F Admission Date: 10/09/2016 : 1975 Discharge Date: 10/14/2016 Attending Physician: Mario Miller M.D. Primary Care Physician: [facility]. 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 SECONDARY DIAGNOSES 1. Post-ERCP pancreatitis. 2. Anxiety not otherwise specified. 3. Pancreatic duct dilation, status post stenting. 4. Transaminitis, improving. 5. Mild protein malnutrition. 6. Beta thalassemia. 7. Ulcerative colitis. HOSPITAL COURSE The patient was admitted to the hospital and had consultation with Dr. Chau Gold with Gastroenterology. Underwent ERCP with sphincterotomy and balloon extraction with stent placement. Procedure findings included mild gastritis and dilated common bile duct of 8-10 mm without any filling defects. No stones were found on balloon extraction. A 7 x 7 common bile duct stent was placed, and a 5 x 5 Bridges was placed in the pancreatic duct. Patient had some postprocedure abdominal pain. Lipase increased up to 215 on October 12 and trended downward to 71 on the day of discharge. The patient's alkaline phosphatase decreased, as did the patient's bilirubin throughout her hospitalization, as did her ALT. After hydration, the patient's hemoglobin remained stable for the last four days of her hospitalization in the range of 8.4 to 9.1. Consultation was obtained on October 10 at the request of Dr. Gold for General Surgery to see the patient to consider possible cholecystectomy. Cholecystectomy was not felt to be needed. Patient did have a negative HIDA scan during this hospitalization as part of that workup. Also had a repeat CT scan of the abdomen and pelvis on October 12. Please see that report for details. That is in addition to the initial CT scan the patient had on October 09. DISCHARGE DISPOSITION To home. DISCHARGE STATUS Stable. DISCHARGE ACTIVITY Ad crow. In fact, patient is encouraged to increase her physical activity to go walking 30 minutes a day. Unit #: [id number] #: [id number] Patient: YANA SHAIKH DISCHARGE DIET Unrestricted as tolerated. DISCHARGE FOLLOWUP 1. With her PCP in one to two weeks. 2. With Dr. Gold with Gastroenterology for stent removal in five weeks. DISCHARGE MEDICATIONS 1. Lialda 2 tablets p.o. b.i.d. 2. Motrin 400 mg p.o. q.6 hours p.r.n. mild pain. 3. Percocet 5 mg 1-2 tablets p.o. q.6 hours p.r.n. pain. 4. Zofran 4 mg p.o. q.6 hours p.r.n. nausea. 1. Dictated by... Santos Bland/oma TD: 10/16/2016 22:09 JOB #: [id number] DISCHARGE SUMMARY Page 1 of 1 X Mario Miller MD X DISCHARGE SUMMARY
--- NOTE | ~2016-10-09 | CO ---
Unit #: [id number] #: [id number] Patient: DENEEN SHAIKH [id number] [address] [place], [place] [address] [id number] MR#: [id number] NAME: DENEEN SHAIKH ROOM: 215 Age: 41 Sex: F Admission Date: 10/09/2016 : 1975 Attending Physician: Oksana Portillo M.D. Primary Care Physician: [facility]. Requesting Physician: Deneen Hagen M.D. Consultation Date: 10/10/2016 CONSULTATION REPORT REASON FOR CONSULTATION Abdominal pain, abnormal liver function tests. HISTORY OF PRESENTING ILLNESS Ms. Shaikh is a 41-year-old lady who presented with severe upper abdominal pain mostly in the epigastric area. She rates it a 10 out of 10, going on since Friday. Yesterday, she presented to the ER when it didn't get better. She has been having recurrent nausea and vomiting during this time, unable to eat or drink anything. She had some chills but no fever, no hematemesis. Patient has a history of left sided ulcerative colitis for which she takes Lialda. Symptoms seemed to be fairly controlled. She is not very compliant with medications. PAST HISTORY Again, as above. Also, with beta thalassemia and anxiety. SOCIAL HISTORY Smoker. Social alcohol intake. FAMILY HISTORY Thalassemia. ALLERGIES Sulfa. MEDICATIONS AT HOME Lialda - has not filled for awhile. REVIEW OF SYSTEMS Complete 12-point system was reviewed and is unremarkable other than mentioned above. PHYSICAL EXAMINATION VITAL SIGN: Stable. Temperature 98, pulse 94, respirations 16, blood pressure 118/70. HEENT: Pupils equal and reactive. Sclerae anicteric. Oral mucosa moist. NECK: No JVD, no lymphadenopathy. CHEST: Clear to auscultation bilaterally. CARDIOVASCULAR SYSTEM: Regular rate and rhythm. No murmurs. ABDOMEN: Is significantly tender in the epigastric area. No guarding or rebound. No organomegaly or ascites. EXTREMITIES: Without clubbing, cyanosis or edema. Unit #: [id number] #: [id number] Patient: DENEEN SHAIKH NEURO: Intact. Normal mood. DIAGNOSTIC STUDIES LABS: Bilirubin of 2.9 yesterday with 1.7 direct. AST/ALT 342, 353. They have been normal before. Alk. phos. also elevated at 261. LFTs are improved some this morning. Amylase and lipase were normal. White count was elevated at 10.6, hemoglobin of 9.1 and platelet count of 314. IMAGING: CT shows intrahepatic biliary dilation. Extrahepatic duct was normal. ASSESSMENT AND PLAN 1. Patient seems to be having obstructive jaundice, most likely from passes of a gallbladder stone into the bile duct. Will need ERCP, broad spectrum antibiotics, pain medications to continue for now. After the ERCP, will continue with laparoscopic cholecystectomy also. 2. Ulcerative colitis. Will continue with Lialda for now. Thank you, Dr. Hagen, for this interesting consult. Will follow along. Dictated by... Santos Amos/mayela TD: 10/11/2016 07:55 JOB #: [id number] CONSULTATION REPORT Page 1 of 1 X Chau Gold MD X CONSULTATION REPORT
--- NOTE | ~2016-10-09 | CT2 ---
[facility] A Service [facility] RADIOLOGY TEXT RESULTS PATIENT: YANA SHAIKH LOCATION: C2A : 79 UNIT #: [id number] AGE: [address]: Oksana Portillo MD SEX: F ORDER DR: [id number] [facility] [address] [place], [place] [address] [id number] MR#: [id number] Acc #: [id number] NAME: YANA SHAIKH : 1975 SEX: F STUDY DATE/TIME: 10/09/2016 14:29 UNIT: JONATHON ROOM: STUDY DESCRIPTION: CT Abd and Pelv W Cont Attending Physician: Ray Steven M.D. Ordering Physician: Ray Steven M.D. Primary Care Physician: [facility] MEDICAL IMAGING REPORT This report is preliminary unless electronic signature is present EXAM CT abdomen and pelvis with contrast INDICATIONS Generalized abdominal pain nausea vomiting for the past 3 days. PROCEDURE Contrast-enhanced CT abdomen and pelvis. This CT exam was performed with one or more of the following radiation dose reduction techniques: automatic control, adjustment of mA and/or kV according to patient size, and iterative reconstruction. COMPARISON 04/17/1916 FINDINGS ABDOMEN WITH CONTRAST: Included lung bases clear. The liver spleen kidneys and adrenal glands pancreas gallbladder unremarkable. There is mild prominence of the intrahepatic bile ducts. This is apparently increased from the previous unenhanced study. The common duct is not significantly dilated and there is no evidence for radiodense obstructing stone or mass. Bowel loops are nondilated. The appendix measures 8 mm. PELVIS WITH CONTRAST: 2.1 cm cyst in the right ovary. No pelvic fluid. No aggressive appearing bone lesion. IMPRESSION 1. Mild prominence of the intrahepatic bile ducts without evidence for obstructing radiodense stone or mass. Correlate with laboratory values. 2. The appendix is slightly prominent at 8 mm in diameter. No [facility] A Service [facility] RADIOLOGY TEXT RESULTS PATIENT: YANA SHAIKH LOCATION: C2Kandy : [birth year] UNIT #: [id number] AGE: [address]: Oksana Portillo MD SEX: F ORDER DR: significant periappendiceal inflammation is seen. Correlate with any current symptoms and physical examination findings. 3. A 2.1 cm cyst in the right ovary is most in keeping with a benign functional cyst given patient's age. Dictated by... Andres Cooper M.D. THIS IS AN ELECTRONICALLY VERIFIED REPORT Andres Cooper M.D. at 10/11/2016 9:53 PM REBEKAH/dev TD: 10/09/2016 16:08 JOB #: [id number] MEDICAL IMAGING REPORT Page 1 of 1 COPY
--- NOTE | ~2016-10-09 | CT2 ---
[facility] A Service of [facility] RADIOLOGY TEXT RESULTS PATIENT: YANA SHAIKH LOCATION: [facility] 461-01 : [birth year] UNIT #: [id number] AGE: [address]: Oksana Portillo MD SEX: F ORDER DR: [id number] [facility] [address] [place], [place] [address] [id number] I MR#: [id number] Acc #: [id number] NAME: YANA SHAIKH : 1975 SEX: F STUDY DATE/TIME: 10/12/2016 14:26 UNIT: [facility] ROOM: [facility] STUDY DESCRIPTION: CT Abd and Pelv W Cont Attending Physician: Oksana Portillo M.D. Ordering Physician: Oksana Portillo M.D. Primary Care Physician: [facility] MEDICAL IMAGING REPORT This report is preliminary unless electronic signature is present EXAM CT scan of the abdomen and pelvis with contrast 10/12/2016 HISTORY Epigastric abdominal pain for 1 week, pancreatitis, status post ERCP 3 days ago with placement of stent in common bile duct. Obstructive jaundice, dilated bile ducts. TECHNIQUE Spiral CT was performed through the abdomen and pelvis following intravenous contrast administration only as per clinician request. This CT exam was performed with one or more of the following radiation dose reduction techniques: automatic control, adjustment of mA and/or kV according to patient size, and iterative reconstruction. FINDINGS ABDOMEN: The exam is limited by the lack of oral contrast. The liver is normal in appearance. The spleen is enlarged measuring 13.6 cm in greatest diameter. The pancreas demonstrates a minimal diffuse enlargement. There is mild prominence of the pancreatic duct and there is a stent in place within the distal aspect of the pancreatic duct. The border of the pancreas particularly in the region of the head and body is somewhat ill-defined anteriorly. Findings could reflect early acute pancreatitis. Clinical correlation and correlation with laboratory findings is recommended. There is a stent in place within the common bile duct. No intrahepatic biliary ductal dilatation is seen. There is pneumobilia. The gallbladder is contracted. The adrenal glands and kidneys are normal. PELVIS FINDINGS: The gut, mesenteric and simona structures are normal. There is minimal free fluid in the pelvis. There is a small periumbilical hernia containing only fat. [facility] A Service of [facility] RADIOLOGY TEXT RESULTS PATIENT: YANA SHAIKH LOCATION: [facility] 461-01 : [birth year] UNIT #: [id number] AGE: [address]: Oksana Portillo MD SEX: F ORDER DR: IMPRESSION 1. The exam is limited by the lack of oral contrast. 2. Mild splenomegaly. 3. Mild diffuse prominence of the pancreas and the pancreatic duct. The anterior border of the pancreas particularly in the region of the body and head is somewhat ill-defined. I cannot exclude early acute pancreatitis on the basis of this examination. Correlation with clinical and laboratory findings is recommended. 4. There is a stent in place within the distal aspect of the pancreatic duct. A stent is in place within the common bile duct and there is pneumobilia. The gallbladder is contracted. 5. Small periumbilical hernia containing only fat. 6. Minimal free fluid in the pelvis. Dictated by... Tho Dupont M.D. THIS IS AN ELECTRONICALLY VERIFIED REPORT Tho Dupont M.D. at 10/13/2016 6:34 AM POORNIMA/dev TD: 10/13/2016 01:56 JOB #: [id number] MEDICAL IMAGING REPORT Page 1 of 1 COPY
[~2016-10-09 11:50] MED LIST changes: +DELTASONE20 MG PO; +LEVAQUIN PO; +LEVAQUIN750 MG PO; +LIALDA1.2 G PO; +METRONIDAZOLE250 MG PO; +ZOFRAN ODT4 MG PO
[2016-10-09 12:57] LABS: BASOPHIL# 0.1 X10e3 (0-0.3); BASOPHIL% 0.9 % (0-2.5); EOSINOPHIL# 0.2 X10e3 (0-0.7); EOSINOPHIL% 1.9 % (0.0-7.0); HEMATOCRIT 35.6 % (35.0-45.0); HEMOGLOBIN 11.3 gm/dL (12.0-16.0); LYMPHOCYTE# 2.2 X10e3 (1.0-3.5); LYMPHOCYTE% 21.2 % (17.0-45.0); MEAN CELL VOLUME 58.7 FL (83-96); MEAN CORPUSCULAR HEMOGLOBIN 18.6 PG (28-34); MEAN CORPUSCULAR HGB CONC 31.7 g/dL (30-36); MEAN PLATELET VOLUME 8.6 FL (6.5-11.5); MONOCYTE# 0.6 X10e3 (0-1.0); MONOCYTE% 5.3 % (3.0-12.0); NEUTROPHIL# 7.3 X10e3 (1.5-7.1); NEUTROPHIL% 70.7 % (40-75); PLATELET COUNT 401 X10e3 (140-420); RED BLOOD COUNT 6.07 X10e (3.90-5.30); RED CELL DISTRIBUTION WIDTH 16.1 % (11.0-15.5); WHITE BLOOD COUNT 10.3 X10e3 (4.0-10.5)
[2016-10-09 13:06] LABS: DIFF IND YES
[2016-10-09 13:40] LABS: URINE SOURCE CLEAN CATCH
[2016-10-09 13:47] LABS: ALBUMIN SERUM 4.9 g/dL (3.5-5.0); BILIRUBIN, DIRECT 1.7 mg/dL (0.0-0.2); BILIRUBIN,INDIRECT 1.2 mg/dL (0.0-0.9); BILIRUBIN,TOTAL 2.9 mg/dL (0.2-2.0); BUN/CREATININE RATIO 14.28; CALCIUM SERUM 9.5 mg/dL (8.4-10.2); CREATININE SERUM 0.7 mg/dL (0.6-1.4); GLOM FILT RATE Estimated 109.1 mL/min (>60); POTASSIUM 3.8 mmol/L (3.5-5.1)
[2016-10-09 13:54] LABS: URINE APPEARANCE CLOUDY; URINE BLOOD NEG (NEG); URINE COLOR DK YELLOW; URINE GLUCOSE NEG (NEG); URINE KETONE NEG (NEG); URINE LEUKOCYTE ESTERASE TRACE (NEG); URINE NITRATE NEG (NEG); URINE PH 7.5 (5-8); URINE PROTEIN NEG (NEG); URINE SPECIFIC GRAVITY 1.015 (1.003-1.035)
[2016-10-09 13:57] LABS: CULTURE INDICATED? YES; URINE BACTERIA AUWI 2+ (NEGATIVE); URINE SQUAMOUS EPITHELIAL CELL MANY /[HPF]
[2016-10-09 14:08] LABS: URINE BILIRUBIN POS (NEG)
[2016-10-09 14:10] LABS: URINE ICTOTEST POS (NEG)
[2016-10-09 14:36] LABS: ANISOCYTOSIS MOD; PLATELET ESTIMATE NORMAL (NORMAL); POIKILOCYTOSIS SL
[2016-10-09 15:08] LABS: ACETAMINOPHEN <10 ug/mL; ALCOHOL BLOOD <5 mg/dL ([0,])
[2016-10-09] MEDS ORDERED: LIALDA1.2 GM PO (16:14)
[2016-10-10 06:03] LABS: HEMATOCRIT 28.6 % (35.0-45.0); MEAN CELL VOLUME 59.7 FL (83-96); MEAN CORPUSCULAR HEMOGLOBIN 18.9 PG (28-34); MEAN CORPUSCULAR HGB CONC 31.7 g/dL (30-36); MEAN PLATELET VOLUME 8.3 FL (6.5-11.5); RED BLOOD COUNT 4.8 X10e (3.90-5.30); RED CELL DISTRIBUTION WIDTH 16.2 % (11.0-15.5); WHITE BLOOD COUNT 10.6 X10e3 (4.0-10.5)
[2016-10-10 06:04] LABS: HEMOGLOBIN 9.1 gm/dL (12.0-16.0)
[2016-10-10 06:44] LABS: ALBUMIN SERUM 3.6 g/dL (3.5-5.0); CALCIUM SERUM 8.3 mg/dL (8.4-10.2); CREATININE SERUM 0.5 mg/dL (0.6-1.4); GLOM FILT RATE Estimated 121.9 mL/min (>60); PROTEIN TOTAL SERUM 5.7 g/dL (6.0-8.3)
[2016-10-10 06:47] LABS: BILIRUBIN,TOTAL 0.9 mg/dL (0.2-2.0)
[2016-10-11 06:43] LABS: HEMATOCRIT 27.8 % (35.0-45.0); HEMOGLOBIN 8.7 gm/dL (12.0-16.0); MEAN CELL VOLUME 59.8 FL (83-96); MEAN CORPUSCULAR HEMOGLOBIN 18.7 PG (28-34); MEAN CORPUSCULAR HGB CONC 31.2 g/dL (30-36); MEAN PLATELET VOLUME 8.6 FL (6.5-11.5); RED BLOOD COUNT 4.64 X10e (3.90-5.30); RED CELL DISTRIBUTION WIDTH 15.9 % (11.0-15.5); WHITE BLOOD COUNT 12.3 X10e3 (4.0-10.5)
[2016-10-11 06:52] LABS: ALBUMIN SERUM 3.2 g/dL (3.5-5.0); BILIRUBIN,TOTAL 0.7 mg/dL (0.2-2.0); CALCIUM SERUM 8.1 mg/dL (8.4-10.2); CREATININE SERUM 0.6 mg/dL (0.6-1.4); GLOM FILT RATE Estimated 114.8 mL/min (>60); POTASSIUM 3.6 mmol/L (3.5-5.1); PROTEIN TOTAL SERUM 5.4 g/dL (6.0-8.3)
[2016-10-11] MEDS ORDERED: PERCOCET5/325 PO (17:16)
[2016-10-12 12:43] LABS: HEMATOCRIT 28.9 % (35.0-45.0); HEMOGLOBIN 9.1 gm/dL (12.0-16.0); MEAN CELL VOLUME 59.8 FL (83-96); MEAN CORPUSCULAR HEMOGLOBIN 18.8 PG (28-34); MEAN CORPUSCULAR HGB CONC 31.4 g/dL (30-36); MEAN PLATELET VOLUME 8.1 FL (6.5-11.5); RED BLOOD COUNT 4.83 X10e (3.90-5.30); RED CELL DISTRIBUTION WIDTH 16.6 % (11.0-15.5); WHITE BLOOD COUNT 9.2 X10e3 (4.0-10.5)
[2016-10-12 13:29] LABS: ALBUMIN SERUM 3.6 g/dL (3.5-5.0); BILIRUBIN,TOTAL 0.7 mg/dL (0.2-2.0); BUN/CREATININE RATIO 8.33; CALCIUM SERUM 8.6 mg/dL (8.4-10.2); CREATININE SERUM 0.6 mg/dL (0.6-1.4); GLOM FILT RATE Estimated 114.8 mL/min (>60); POTASSIUM 3.7 mmol/L (3.5-5.1); PROTEIN TOTAL SERUM 5.9 g/dL (6.0-8.3)
[2016-10-13 04:19] LABS: ALBUMIN SERUM 3.2 g/dL (3.5-5.0); ALKALINE PHOSPHATASE 114 U/L (32-92); ALT (SGPT) 71 U/L (10-40); AST (SGOT) 15 U/L (10-42); BILIRUBIN,TOTAL 0.6 mg/dL (0.2-2.0); CALCIUM SERUM 8.4 mg/dL (8.4-10.2); CARBON DIOXIDE 22 mmol/L (22-31); CHLORIDE 112 mmol/L (100-111); CREATININE SERUM 0.7 mg/dL (0.6-1.4); GLOM FILT RATE Estimated 109.1 mL/min (>60); GLUCOSE FASTING 160 mg/dL (70-110); LIPASE 107 U/L (22-51); POTASSIUM 3.9 mmol/L (3.5-5.1); PROTEIN TOTAL SERUM 5.3 g/dL (6.0-8.3); SODIUM 139 mmol/L (135-145)
[2016-10-13 04:20] LABS: BLOOD UREA NITROGEN <5 mg/dL (9-23); BUN/CREATININE RATIO 7.14
[2016-10-13 08:33] LABS: HA AB IGM (HEPPAN) Nonreactive (()); HB CORE AB IGM (HEPPAN) Nonreactive (Nonreactive); HB S AG (HEPPAN) Nonreactive (Nonreactive); HEP C AB (HEPPAN) Nonreactive (Nonreactive); HEP C AB SIGNAL TO CUTOFF 0.03 ratio (<1.00)
[2016-10-14 03:31] LABS: BASOPHIL# 0.1 X10e3 (0-0.3); BASOPHIL% 0.6 % (0-2.5); EOSINOPHIL# 0.3 X10e3 (0-0.7); EOSINOPHIL% 3.2 % (0.0-7.0); HEMATOCRIT 26.7 % (35.0-45.0); HEMOGLOBIN 8.4 gm/dL (12.0-16.0); LYMPHOCYTE# 2.5 X10e3 (1.0-3.5); LYMPHOCYTE% 27.6 % (17.0-45.0); MEAN CELL VOLUME 60.6 FL (83-96); MEAN CORPUSCULAR HGB CONC 31.4 g/dL (30-36); MEAN PLATELET VOLUME 7.6 FL (6.5-11.5); MONOCYTE# 0.4 X10e3 (0-1.0); MONOCYTE% 4.7 % (3.0-12.0); NEUTROPHIL# 5.9 X10e3 (1.5-7.1); NEUTROPHIL% 63.9 % (40-75); PLATELET COUNT 326 X10e3 (140-420); RED CELL DISTRIBUTION WIDTH 16.6 % (11.0-15.5); WHITE BLOOD COUNT 9.2 X10e3 (4.0-10.5)
[2016-10-14 03:32] LABS: DIFF IND YES
[2016-10-14 03:54] LABS: ALBUMIN SERUM 3.5 g/dL (3.5-5.0); ALKALINE PHOSPHATASE 109 U/L (32-92); ALT (SGPT) 57 U/L (10-40); AST (SGOT) 13 U/L (10-42); BILIRUBIN,TOTAL 0.6 mg/dL (0.2-2.0); CALCIUM SERUM 8.4 mg/dL (8.4-10.2); CARBON DIOXIDE 22 mmol/L (22-31); CHLORIDE 112 mmol/L (100-111); CREATININE SERUM 0.7 mg/dL (0.6-1.4); GLOM FILT RATE Estimated 109.1 mL/min (>60); GLUCOSE FASTING 119 mg/dL (70-110); LIPASE 71 U/L (22-51); POTASSIUM 3.8 mmol/L (3.5-5.1); PROTEIN TOTAL SERUM 6.1 g/dL (6.0-8.3); SODIUM 139 mmol/L (135-145)
[2016-10-14 03:56] LABS: BLOOD UREA NITROGEN <5 mg/dL (9-23); BUN/CREATININE RATIO 7.14
[2016-10-14 04:15] LABS: PLATELET ESTIMATE NORMAL (NORMAL)
[2016-10-14 04:16] LABS: ANISOCYTOSIS SL; HYPOCHROMIA SL; MICROCYTOSIS MOD; POIKILOCYTOSIS SL
[2016-10-14] MEDS ORDERED: ZOFRAN PO (08:18)
[2016-10-14] MEDS ORDERED: IBUPROFEN400 MG PO (08:19)
== END 2016-10-14 10:50 | disposition home or self-care (01) | DRG 444 ==
LOC: CED 11:50 → C2A 18:10 → CEDOF 18:10 → CED 18:44 → CEDOF 18:44 → C2A 19:53 → C4C 10-12 16:34
PROVIDERS: Emergency Medicine; Family Medicine; Internal Medicine; Specialist
PROC: 0F798DZ Dilation of Common Bile Duct with Intraluminal Device, Via Natural or Artificial Opening Endoscopic (ICD-10-PCS; principal; 2016-10-10 10:33)
PROC: 0F7D8DZ Dilation of Pancreatic Duct with Intraluminal Device, Via Natural or Artificial Opening Endoscopic (ICD-10-PCS; 2016-10-10 10:33)
PROC: 0DJ08ZZ Inspection of Upper Intestinal Tract, Via Natural or Artificial Opening Endoscopic (ICD-10-PCS; 2016-10-10 10:33)
PROC: 05H933Z Insertion of Infusion Device into Right Brachial Vein, Percutaneous Approach (ICD-10-PCS; 2016-10-12)
DX: K83.1 Obstruction of bile duct (principal); K85.90 Acute pancreatitis without necrosis or infection, unspecified; D56.1 Beta thalassemia; E87.2 Acidosis; E44.1 Mild protein-calorie malnutrition; K51.90 Ulcerative colitis, unspecified, without complications; K86.89 Other specified diseases of pancreas; F41.9 Anxiety disorder, unspecified; R74.0 Nonspecific elevation of levels of transaminase and lactic acid dehydrogenase [LDH]; Z68.23 Body mass index [BMI] 23.0-23.9, adult; Z91.14 Patient's other noncompliance with medication regimen; N83.201 Unspecified ovarian cyst, right side; F17.210 Nicotine dependence, cigarettes, uncomplicated; D50.9 Iron deficiency anemia, unspecified; Z88.2 Allergy status to sulfonamides
CPT/HCPCS: 36415; 74177; 74330; 78226; 80048; 80053; 80074; 80076; 81003; 82150; 83690; 84484; 84703; 85025; 85027; 87086; 96361; 96372; 96374; 96375; 99285; A9537; C9113; G0480; J0500; J0696; J1170; J1885; J2250; J2405; J3010; Q9967